=== PATIENT | female | born 1995 | race Two or more races ===

== ENCOUNTER 2019-11-17 23:25 | Emergency (ER) | payer OTHER ==
[2019-11-18 00:02] VITALS: TEMP 99.4; BMI 23.6
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
[2019-11-18] MEDS ORDERED: TETRACAINE 0.5% OPHTH SOLN 2 ML BOTTLE ONE (00:57)
[2019-11-18] MEDS ORDERED: FLUORESCEIN NA 1 EA STRIP ONE ×3 (00:57→01:17)
[2019-11-18] MEDS ORDERED: ACETAMINOPHEN 325 MG TABLET (FP) PO ONE (01:41)
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
[2019-11-18] MEDS ORDERED: ACETAMINOPHEN 325 MG TABLET (FP) ONE (01:50)
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
[2019-11-18] MEDS ORDERED: METOCLOPRAMIDE HCL 10 MG TABLET (FP) PO ONE ×2 (02:05→02:12)
[2019-11-18] MEDS ORDERED: IBUPROFEN 600 MG TABLET (FP) PO ONE ×2 (02:06→02:12)
[2019-11-18 04:00] VITALS: BP 103/57; PULSE 84
== END 2019-11-18 04:25 | disposition home or self-care (01) ==
LOC: JER 23:25
PROC: 3E1CX8Z Irrigation of Eye using Irrigating Substance (ICD-10-PCS; principal; 2019-11-17)
DX: S06.9X9A Unspecified intracranial injury with loss of consciousness of unspecified duration, initial encounter (principal); S01.311A Laceration without foreign body of right ear, initial encounter; T15.82XA Foreign body in other and multiple parts of external eye, left eye, initial encounter; V43.62XA Car passenger injured in collision with other type car in traffic accident, initial encounter; Y92.411 Interstate highway as the place of occurrence of the external cause; W22.19XA Striking against or struck by other automobile airbag, initial encounter; Y93.89 Activity, other specified; Y99.8 Other external cause status
CPT/HCPCS: 70450-TC; 72125-TC; 73110-TC-LT-FY; 73130-TC-LT-FY; 99284-25